=== PATIENT | female | born 2000 | race Two or more races ===

== ENCOUNTER 2022-04-25 17:50 | Emergency (ER) | payer SELFPAY ==
[2022-04-25 18:35] LABS: BILIRUBIN,URINE NEGATIVE (NEGATIVE); GLUCOSE, URINE (UA) NEGATIVE (NEGATIVE); KETONES,URINE (UA) NEGATIVE (NEGATIVE); LEUKOCYTE ESTERASE, URINE LARGE (NEGATIVE); NITRITE,URINE NEGATIVE (NEGATIVE); OCCULT BLOOD,URINE MODERATE (NEGATIVE); PROTEIN,URINE 30 mg/dL (NEGATIVE); UROBILINOGEN,URINE 0.2 (NORMAL) E.U./dL (NORMAL)
[2022-04-25 18:37] LABS: CLARITY,URINE CLOUDY (CLEAR); HCG UR QUAL NEGATIVE
[2022-04-25 18:44] LABS: BACTERIA,URINE Moderate /HPF (None Seen); SQUAMOUS EPITHELIAL CELL,UR FEW Squamous (<= Few); WBC,URINE >25 /HPF (0-5)
[2022-04-25 18:50] LABS: BASOPHILS % (AUTO) 0.3 %; EOSINOPHILS % (AUTO) 0.1 %; HCT - HEMATOCRIT 42.5 % (37.0-47.0); LYMPHOCYTES # (AUTO) 1.3 10^3/uL (1.5-3.5); LYMPHOCYTES % (AUTO) 9.8 %; MEAN CORPUSCULAR HEMOGLOBIN 30.4 pg (27.0-31.0); MEAN CORPUSCULAR HGB CONC 32.9 g/dL (32.0-36.0); MEAN CORPUSCULAR VOLUME 92.4 fL (81.0-99.0); MEAN PLATELET VOLUME 9.7 fL (7.9-10.8); MONOCYTES # (AUTO) 0.9 10^3/uL (0.0-1.0); NEUTROPHILS # (AUTO) 10.7 10^3/uL (1.5-6.6); NEUTROPHILS % (AUTO) 82.4 %; PLT - PLATELET COUNT 311 10^3/uL (130-450); RED CELL DISTRIBUTION WIDTH 13.1 % (12.0-15.0); WHITE BLOOD COUNT 12.9 x10^3/uL (4.8-10.8)
[2022-04-25] MEDS ORDERED: KETOROLAC 30 MG/ML VIAL IVP STA (18:51)
[2022-04-25 19:48] LABS: ALBUMIN 4.2 g/dL (3.2-5.5); ALBUMIN/GLOBULIN RATIO 1.1 (1.0-2.2); BILIRUBIN,TOTAL 0.6 mg/dL (0.2-1.0); CALCIUM 9.1 mg/dL (8.5-10.3); CREATININE 0.7 mg/dL (0.4-1.0); POTASSIUM 3.7 mmol/L (3.5-5.0); TOTAL PROTEIN 8.2 g/dL (6.7-8.2)
--- NOTE | 2022-04-25 19:57 | CT Report ---
PROCEDURE: Abdomen/Pelvis WO INDICATIONS: R flank pain, poss renal stone? TECHNIQUE: Noncontrast 5 mm thick sections acquired from the diaphragms to the symphysis. 5 mm coronal and sagi ttal reformats were then performed. For radiation dose reduction, the following was used: automated exposure control, adjustment of mA and/or kV according to patient size. COMPARISON: None. FINDINGS: Image quality: Excellent. ABDOMEN: Lung bases: Lung bases are clear. Heart size is normal. Solid organs: Liver and spleen are normal in size. Gallbladder wall does not appear thickened. P ancreas is normal in contours. No adrenal nodules. Kidneys are normal in size, without nephrolithiasis. There is mild right-sided hydronephrosis. Peritoneum and bowel: Unenhanced bowel loops demonstrate normal wall thickness and caliber. No free fluid or air. No appendix can be seen, either normal or abnormal. No focal right lower quadrant inf lammatory changes are seen. Nodes and vessels: No retroperitoneal or mesenteric adenopathy by size criteria. Aorta and inferior vena cava are normal in caliber. Miscellaneous: No ventral hernias. PELVIS: Genitourinary: Bladder wall thickness is normal. The uterus demonstrates an unremarkable appearance for age. No adnexal masses are seen. Miscellaneous: No inguinal hernias or adenopathy. Bones: No suspicious bony lesions. No vertebral body compression fractures. IMPRESSION: Negative for kidney stones or ureteral stones. Mild right-sided hydronephrosis is seen, which may reflect a recently passed stone. No appendix can be seen, either normal or abnormal. No focal right lower quadrant inflammatory change s are seen. No adnexal lesions are seen. Reviewed by: Jerry Ortega MD on 04/25/2022 6:56 PM DANY Approved by: Jerry Ortega MD on 04/25/2022 6:56 PM DANY Station ID: [id number]
[2022-04-25] MEDS ORDERED: cefTRIAXone 1 GM VIAL IVP STA (20:03)
--- NOTE | 2022-04-25 20:03 | ED Physician Documentation ---
History of Present Illness - Stated complaint Stated Complaint: ABD PX - Chief complaint Chief Complaint: Abd Pain - History obtained from History obtained from: Patient - History of Present Illness Timing: Today Pain level max: 8 Pain level now: 5 - Additonal information Additional information: Patient is a 22-year-old female who presents to the emergency department the right sided abdominal pain. Started today. Comes and goes. Last for about an hour at a time. Nothing seems to make it better or worse. Denies any urinary symptoms. No fever. PD PAST MEDICAL HISTORY - Present Medications Home Medications: Ambulatory Orders Medication Instructions Recorded Confirmed Cefdinir 300 mg PO BID #20 cap 04/25/22 HYDROcod/ACETAM 5/325 [[place] 5/325] 1 - 2 ea PO Q6H PRN #14 tablet 04/25/22 Ondansetron Odt [Zofran] 4 mg TL Q6H PRN #10 tablet 04/25/22 - Allergies Allergies/Adverse Reactions: Allergies Allergy/AdvReac Type Severity Reaction Status Date / Time No Known Drug Allergies Allergy Verified 04/25/22 18:03 Results - Vitals Vitals: Vital Signs - 24 hr 04/25/22 04/25/22 04/25/22 18:00 18:22 18:45 Temperature 37.6 C Heart Rate 133 H 125 H Respiratory 16 14 25 H Rate Blood Pressure 126/89 H O2 Saturation 96 98 04/25/22 19:54 Temperature Heart Rate 120 H Respiratory Rate Blood Pressure O2 Saturation 96 Oxygen O2 Source Room air - Labs Labs: Laboratory Tests 04/25/22 04/25/22 04/25/22 18:26 18:45 19:12 WBC 12.9 H RBC 4.60 Hgb 14.0 Hct 42.5 MCV 92.4 MCH 30.4 MCHC 32.9 RDW 13.1 Plt Count 311 MPV 9.7 Neut # (Auto) 10.7 H Lymph # (Auto) 1.3 L [place] # (Auto) 0.9 Eos # (Auto) 0.0 Baso # (Auto) 0.0 Absolute Nucleated RBC 0.00 Nucleated RBC % 0.0 Sodium 139 Potassium 3.7 Chloride 101 Carbon Dioxide 25 Anion Gap 13.0 BUN 9 Creatinine 0.7 Estimated GFR (MDRD) 107 Glucose 103 H Calcium 9.1 Total Bilirubin 0.6 AST 19 ALT 23 Alkaline Phosphatase 63 Total Protein 8.2 Albumin 4.2 Globulin 4.0 Albumin/Globulin Ratio 1.1 Lipase 25 Urine Color YELLOW Urine Clarity CLOUDY Urine pH 7.0 Ur Specific [place] 1.010 Urine Protein 30 H Urine Glucose (UA) NEGATIVE Urine Ketones NEGATIVE Urine Occult Blood MODERATE H Urine Nitrite NEGATIVE Urine Bilirubin NEGATIVE Urine Urobilinogen 0.2 (NORMAL) Ur Leukocyte Esterase LARGE H Urine RBC 6-10 H Urine WBC >25 H Ur Squamous Epith Cells FEW Squamous Urine Bacteria Moderate H Ur Microscopic Review INDICATED Urine Culture Comments INDICATED Urine HCG, Qual NEGATIVE Departure - Departure Disposition: Home, Self Care Clinical Impression: Pyelonephritis Condition: Good Instructions: ED Kidney Infec Female Follow-Up: your,doctor in 1 week [Other] Prescriptions: Cefdinir 300 mg PO BID #20 cap HYDROcod/ACETAM 5/325 [[place] 5/325] 1 - 2 ea PO Q6H PRN #14 tablet PRN Reason: Pain Ondansetron Odt [Zofran] 4 mg TL Q6H PRN #10 tablet PRN Reason: Nausea / Vomiting Print Language: Amharic Comments: [facility] [place]. Please take all antibiotics until gone. You appear to have a kidney infection tonight. This comes from your urine. Please return if you worsen including fevers, worsening pain or other new or worrisome symptoms. I am prescribing a short course of narcotic pain medication for you. These are potentially dangerous and addictive medications that should be used carefully. These medications may constipate you. Take an zbnw-ndx-jqnpapd stool softener (docusate) twice daily with plenty of water while taking these medications. If you go 24 hours without a bowel movement, take gxit-bmf-huyekqj miralax, per package instructions. Do not drink or drive while taking these medications. If you received narcotic or sedating medications while in the emergency department, do not drive for 24 hours. Store this medication in a safe, secure place and out of reach of children. It is a violation of federal law to give or sell this medication to another person or to use in a manner other than prescribed. The ED will not refill narcotic prescriptions, including prescriptions lost or stolen. To dispose of unwanted medications: 1. [facility] at [address] in [place] has a medication drop box. They accept prescription medications (in pill form) Wednesday through Wednesday 9:00 a.m. to 5:00 p.m. 2. The [place] [employer] accepts prescription medications (in pill form only) for disposal year round. Call for more information. 3. Contact the [facility] for the next RANJAN sponsored prescription drug collection event. , [phone], or [phone]; Yi recetas fueron enviadas a mart en [place]. Por favor, tome todos los antibiticos hasta que se acabe. Parece que tienes suzie infeccin renal esta noche. [place] viene de villanueva orina. Regrese si empeora, incluidas fiebres, empeoramiento del dolor u otros sntomas nuevos o preocupantes. Le estoy recetando un ciclo corto de analgsicos narcticos. Estos son medicamentos potencialmente peligrosos y adictivos que deben usarse con cuidado. Estos medicamentos pueden causarle estreimiento. [place] un ablandador de heces de venta liam (docusato) dos veces al da con abundante agua mientras miguel estos medicamentos. Si pasa 24 horas sin defecar, tome miralax de venta liam, segn las instrucciones del paquete. No keyla ni conduzca mientras miguel estos medicamentos. Si recibi medicamentos narcticos o sedantes mientras estaba en el departamento de emergencias, no conduzca stefanie 24 horas. Guarde rodrigue medicamento en un lugar seguro y fuera del alcance de los nios. Es suzie violacin de la priyanka federal angeli o med surg rn rodrigue medicamento a otra persona o usarlo de suzie manera diferente a la recetada. El ED no volver a surtir recetas de narcticos, incluidas las recetas perdidas o robadas. Para desechar medicamentos no deseados: 1. Precinto [place] del Departamento del [facility] en [facility] [address] en [place] tiene un buzn de medicamentos. Aceptan medicamentos recetados (en forma de pastillas) de lunes a viernes de 9:00 a. m. a 5:00 p. m. 2. El Departamento de [place] de la [facility] acepta medicamentos recetados (solo en forma de pldora) para villanueva eliminacin stefanie todo el ao. Rickey mera para ms informacin. 3. Comunquese con el alguacil del [facility] para conocer el prximo evento de recoleccin de medicamentos recetados patrocinado por la RANJAN. , [phone], o [phone]; More about this source textSource text required for additional translation information Send feedback Side panels
[2022-04-25] MEDS ORDERED: SODIUM CHLORIDE 0.9% 1,000 ML IV STA (20:29)
--- NOTE | 2022-04-25 20:36 | Ultrasound Report ---
PROCEDURE: Abdomen Limited INDICATIONS: RUQ abd pain TECHNIQUE: Real-time focused scanning was performed of the abdomen, with image documentation. COMPARISON: Prior CT of the abdomen/pelvis without contrast performed same day reviewed. FINDINGS: The liver is normal in size measuring up to 14.5 cm craniocaudad and demonstrates a normal echotexture. Portions of the liver parenchyma are relatively poorly seen due to overlying bowel gas. The gallbladder appears normal. The bile ducts are normal in caliber where well seen with the common bile duct measuring 2.2 mm, norm al. The pancreas could not be seen due to bowel gas. The right kidney appears free of hydronephrosis or nephrolithiasis IMPRESSION: Normal limited abdominal ultrasound targeted primarily to the right abdomen, with no source of report ed right upper quadrant pain identified. Reviewed by: Terrell Weaver MD on 04/25/2022 8:35 PM PDT Approved by: Terrell Weaver MD on 04/25/2022 8:35 PM PDT Station ID: [id number]
[2022-04-25 21:16] VITALS: BP 114/80
--- NOTE | 2022-04-25 21:16 | ED Physician Documentation ---
History of Present Illness - Stated complaint Stated Complaint: ABD PX - Chief complaint Chief Complaint: Abd Pain - History obtained from History obtained from: Patient - History of Present Illness Timing: Today Pain level max: 8 Pain level now: 5 - Additonal information Additional information: Patient is a 22-year-old female who presents to the emergency department right- sided abdominal pain. Started today. Comes and goes. Last for about an hour at a time. Nothing seems to make it better or worse. Denies any urinary symptoms. No fever. Has not had similar symptoms previously. art coordinator used. Review of Systems Constitutional: denies: Fever, Chills Nose: denies: Rhinorrhea / runny nose, Congestion Respiratory: denies: Cough GI: denies: Vomiting, Constipation, Diarrhea : denies: Incontinent, Now EGA Skin: denies: Rash Musculoskeletal: denies: Neck pain, Back pain Neurologic: denies: Headache PD PAST MEDICAL HISTORY - Past Medical History Past Medical History: No - Past Surgical History Past Surgical History: No - Present Medications Home Medications: Ambulatory Orders Medication Instructions Recorded Confirmed Cefdinir 300 mg PO BID #20 cap 04/25/22 HYDROcod/ACETAM 5/325 [[place] 5/325] 1 - 2 ea PO Q6H PRN #14 tablet 04/25/22 Ondansetron Odt [Zofran] 4 mg TL Q6H PRN #10 tablet 04/25/22 - Allergies Allergies/Adverse Reactions: Allergies Allergy/AdvReac Type Severity Reaction Status Date / Time No Known Drug Allergies Allergy Verified 04/25/22 18:03 - Living Situation Living Situation: reports: With family Living Arrangement: reports: At home - Social History Does the pt smoke?: No Does the pt drink ETOH?: No Does the pt have substance abuse?: No PD ED PE NORMAL - Vitals Vital signs reviewed: Yes - General General: Alert and oriented X 3, No acute distress, Well developed/nourished - HEENT HEENT: PERRL, Moist mucous membranes - Neck Neck: Supple, no meningeal sign - Cardiac Cardiac: RRR, Strong equal pulses - Respiratory Respiratory: No respiratory distress, Clear bilaterally - Abdomen Abdomen: Soft, Non distended, Other (Right upper quadrant abdominal tenderness. Equivocal Morfin's) - Back Back: Other (Right CVA tenderness) - Derm Derm: Warm and dry, No rash - Extremities Extremities: No edema, No calf tenderness / cord - Neuro Neuro: Alert and oriented X 3 - Psych Psych: Normal mood, Normal affect Results - Vitals Vitals: Vital Signs - 24 hr 04/25/22 04/25/22 04/25/22 18:00 18:22 18:45 Temperature 37.6 C Heart Rate 133 H 125 H Respiratory 16 14 25 H Rate Blood Pressure 126/89 H O2 Saturation 96 98 04/25/22 04/25/22 19:54 21:16 Temperature 37.2 C Heart Rate 120 H 111 H Respiratory 14 Rate Blood Pressure 114/80 O2 Saturation 96 98 Oxygen O2 Source Room air - Labs Labs: Laboratory Tests 04/25/22 04/25/22 04/25/22 18:26 18:45 19:12 WBC 12.9 H RBC 4.60 Hgb 14.0 Hct 42.5 MCV 92.4 MCH 30.4 MCHC 32.9 RDW 13.1 Plt Count 311 MPV 9.7 Neut # (Auto) 10.7 H Lymph # (Auto) 1.3 L [place] # (Auto) 0.9 Eos # (Auto) 0.0 Baso # (Auto) 0.0 Absolute Nucleated RBC 0.00 Nucleated RBC % 0.0 Sodium 139 Potassium 3.7 Chloride 101 Carbon Dioxide 25 Anion Gap 13.0 BUN 9 Creatinine 0.7 Estimated GFR (MDRD) 107 Glucose 103 H Calcium 9.1 Total Bilirubin 0.6 AST 19 ALT 23 Alkaline Phosphatase 63 Total Protein 8.2 Albumin 4.2 Globulin 4.0 Albumin/Globulin Ratio 1.1 Lipase 25 Urine Color YELLOW Urine Clarity CLOUDY Urine pH 7.0 Ur Specific [place] 1.010 Urine Protein 30 H Urine Glucose (UA) NEGATIVE Urine Ketones NEGATIVE Urine Occult Blood MODERATE H Urine Nitrite NEGATIVE Urine Bilirubin NEGATIVE Urine Urobilinogen 0.2 (NORMAL) Ur Leukocyte Esterase LARGE H Urine RBC 6-10 H Urine WBC >25 H Ur Squamous Epith Cells FEW Squamous Urine Bacteria Moderate H Ur Microscopic Review INDICATED Urine Culture Comments INDICATED Urine HCG, Qual NEGATIVE - Rads (name of study) CT abdomen pelvis without contrast Radiology: Final report received, EMP read contemporaneously, See rad report Right upper quadrant ultrasound Radiology: Final report received, EMP read contemporaneously, See rad report PD MEDICAL DECISION MAKING - ED course Complexity details: reviewed results, re-evaluated patient, considered differential, d/w patient ED course: 22-year-old female with what appears to be pyelonephritis. Patient is well- appearing, nontoxic. Afebrile. Pain resolved with Toradol. Given IV fluids. Heart rate decreased. Given IV Rocephin. We will place on pain medication, antibiotics for home. Strict return precautions given. park interpreter use d. Patient and family counseled regarding signs and symptoms for which I believe and urgent re-evaluation would be necessary. Patient with good understanding of and agreement to plan and is comfortable going home at this time This document was made in part using voice recognition software. While efforts are made to proofread this document, sound alike and grammatical errors may occur. IMPRESSION: Negative for kidney stones or ureteral stones. Mild right-sided hydronephrosis is seen, which may reflect a recently passed stone. No appendix can be seen, either normal or abnormal. No focal right lower quadrant inflammatory changes are seen. No adnexal lesions are seen. IMPRESSION: Normal limited abdominal ultrasound targeted primarily to the right abdomen, with no source of reported right upper quadrant pain identified. Departure - Departure Disposition: 01 Home, Self Care Clinical Impression: Pyelonephritis Condition: Good Instructions: ED Kidney Infec Female Follow-Up: your,doctor in 1 week [Other] Prescriptions: Cefdinir 300 mg PO BID #20 cap HYDROcod/ACETAM 5/325 [[place] 5/325] 1 - 2 ea PO Q6H PRN #14 tablet PRN Reason: Pain Ondansetron Odt [Zofran] 4 mg TL Q6H PRN #10 tablet PRN Reason: Nausea / Vomiting Print Language: [place] Citizen Comments: Your prescriptions were sent to [facility] in [place]. Please take all antibiotics until gone. You appear to have a kidney infection tonight. This comes from your urine. Please return if you worsen including fevers, worsening pain or other new or worrisome symptoms. I am prescribing a short course of narcotic pain medication for you. These are potentially dangerous and addictive medications that should be used carefully. These medications may constipate you. Take an ovbo-plv-auqnhky stool softener (docusate) twice daily with plenty of water while taking these medications. If you go 24 hours without a bowel movement, take uoan-dik-eydtmhx miralax, per package instructions. Do not drink or drive while taking these medications. If you received narcotic or sedating medications while in the emergency de partment, do not drive for 24 hours. Store this medication in a safe, secure place and out of reach of children. It is a violation of federal law to give or sell this medication to another person or to use in a manner other than prescribed. The ED will not refill narcotic prescriptions, including prescriptions lost or stolen. To dispose of unwanted medications: 1. [facility] at [address] in [place] has a medication drop box. They accept prescription medications (in pill form) Wednesday through Wednesday 9:00 a.m. to 5:00 p.m. 2. The [facility] accepts prescription medications (in pill form only) for disposal year round. Call for more information. 3. Contact the [facility] for the next RANJAN sponsored prescription drug collection event. , [phone], or [phone]; Yi recetas fueron enviadas a [facility] en [place]. Por favor, tome todos los antibiticos hasta que se acabe. Parece que tienes suzie infeccin renal esta noche. [place] viene de villanueva orina. Regrese si empeora, incluidas fiebres, empeoramiento del dolor u otros sntomas nuevos o preocupantes. Le estoy recetando un ciclo corto de analgsicos narcticos. Estos son medicamentos potencialmente peligrosos y adictivos que deben usarse con cuidado. Estos medicamentos pueden causarle estreimiento. [place] un ablandador de heces de venta liam (docusato) dos veces al da con abundante agua mientras miguel estos medicamentos. Si pasa 24 horas sin defecar, tome miralax de venta liam, segn las instrucciones del paquete. No keyla ni conduzca mientras miguel estos medicamentos. Si recibi medicamentos narcticos o sedantes mientras estaba en el departamento de emergencias, no conduzca stefanie 24 horas. Guarde rodrigue medicamento en un lugar seguro y fuera del alcance de los nios. Es suzie violacin de la priyanka federal angeli o telesales specialist rodrigue medicamento a otra persona o usarlo de suzie manera diferente a la recetada. El ED no volver a surtir recetas de narcticos, incluidas las recetas perdidas o robadas. Para desechar medicamentos no deseados: 1. Precinto [place] del Departamento del [facility] del [facility] en [facility] [address] en [place] tiene un buzn de medicamentos. Aceptan medicamentos recetados (en forma de pastillas) de lunes a viernes de 9:00 a. m. a 5:00 p. m. 2. El Departamento de [place] de la [facility] acepta medicamentos recetados (solo en forma de pldora) para villanueva eliminacin stefanie todo el ao. Rickey mera para ms informacin. 3. Comunquese con el alguacil del [facility] para conocer el prximo evento de recoleccin de medicamentos recetados patrocinado por la RANJAN. , [phone], o [phone]; More about this source textSource text required for additional translation information Send feedback Side panels Discharge Date/Time: 04/25/22 21:16
== END 2022-04-25 21:16 | disposition home or self-care (01) ==
LOC: ED 17:50
DX: N12 Tubulo-interstitial nephritis, not specified as acute or chronic (principal)
CPT/HCPCS: 36415; 80053; 81001; 81003; 81025; 83690; 85025; 87077; 87086; 87181; 96374; 96375; 99284